=== PATIENT | female | born 1960 | race Caucasian/White ===

== ENCOUNTER 2017-01-11 09:28 | Inpatient (IN) | payer OTHER ==
--- NOTE | 2017-01-10 09:43 | HP ---
DATE OF SURGERY: 01/11/2017 ANTICIPATED PROCEDURE: Total abdominal hysterectomy, possible bilateral salpingo-oophorectomy, abdominovaginal sacropexy with mesh, Rhwanjja-Kadxofwsu-Losypv, posterior colporrhaphy. HISTORY OF PRESENT ILLNESS: The patient has significant pelvic prolapse. She is 55 years old. She noticed having issues after chronic constipation back in March, difficulty with bowel movements. [place] to have some bladder drop. Seen and examined pelvis in the office. She had 2+ cystocele, 2+ cervical prolapse, 2+ rectocele. Options discussed with her. Elected to proceed with total abdominal hysterectomy probably bilateral salpingo-oophorectomy. She is probably totally menopausal and her ovaries are probably atrophic. It was discussed with her that they would be removed if they are small and atrophic. Abdominovaginal sacropexy with mesh, Lkgjmaqk-Ekvlwwgii-Kxkdcv, post colporrhaphy. Diagram of the procedure was given. PAST MEDICAL HISTORY: ALLERGIES: PENICILLIN. MEDICATIONS: Calcium citrate, Dulcolax, Linzess, levothyroxine. PAST SURGICAL HISTORY: Cholecystectomy. Thyroid removal for cancer in 2007. EGD November 2015. PLAN: Total abdominal hysterectomy, bilateral salpingo-oophorectomy, abdominovaginal sacropexy with mesh, Ugroysjc-Hamxdtsos-Keehzd, posterior colporrhaphy.
[~2017-01-11 09:28] MED LIST: DILAUDID 2 MG INJECTION IV ONE; DIPRIVAN 200 MG/20 ML IV ONE; Decadron 4 MG INJ IV ONE; Dopram IV ONE; OFIRMEV IV ONE; Quelicin Fliptop 200 MG/10 ML IV ONE; SUBLIMAZE 100 MCG/2 ML IV ONE; TORAdol 30 mg Injection IV ONE; Versed 2 MG/2 ML Injection IV ONE; Zemuron 100 MG/10 ML IV ONE; Zofran 4 MG/2 ML VIAL IV ONE
[2017-01-11] MEDS ORDERED: Levofloxacin 500MG/100ML D5W 100 ML IV SCH (11:15)
[2017-01-11] MEDS ORDERED: Pepcid 20 MG VIAL IV SCH (11:15)
[2017-01-11] MEDS ORDERED: ENTEREG 12 MG PO SCH (11:15)
[2017-01-11] MEDS ORDERED: BICITRA 30 ML CUP PO SCH (11:15)
[2017-01-11] MEDS ORDERED: CLINDAMYCIN-D5W 900 MG/50 ML*** 50 ML IV SCH (11:30)
[2017-01-11] MEDS ORDERED: Lactated Ringers 1,000 ML IV SCH (11:30)
[2017-01-11] MEDS ORDERED: Pepcid 20 MG VIAL IV ONE (12:11)
[2017-01-11] MEDS ORDERED: BICITRA 30 ML CUP ONE (12:11)
[2017-01-11] MEDS ORDERED: Levofloxacin 500MG/100ML D5W 100 ML IV ONE (12:12)
[2017-01-11] MEDS ORDERED: Lactated Ringers 1,000 ML IV ONE ×4 (12:12→18:17)
[2017-01-11] MEDS ORDERED: SUBLIMAZE 100 MCG/2 ML ONE (19:00)
[2017-01-11] MEDS ORDERED: Morphine PCA 1 MG/ML 30 ML IV ONE (19:02)
[2017-01-11] MEDS: Morphine PCA 1 MG/ML 30 ML IV PRN (20:08)
[2017-01-11] MEDS: Zofran 4 MG/2 ML VIAL IV PRN (20:30)
[2017-01-11] MEDS: D5W/0.45NS W/ 20mEq KCl 1000 ML 1,000 ML IV SCH (21:47)
[2017-01-11] MEDS: Phenergan 25 MG INJ IV PRN (22:47)
[2017-01-12] MEDS: Zofran 4 MG/2 ML VIAL IV PRN (03:06)
[2017-01-12 05:40] LABS: Mean Cell Volume 91.9 fl (78-100); Mean Corpuscular Hemoglobin 30.1 pg (26-32); Mean Platelet Volume 10.4 fl (6-9.5); Platelet Count 253 K/mm3 (150-450); Red Blood Count 4.32 M/mm3 (4.1-5.4); Red Cell Distribution Width 13.6 % (11.5-14.0); White Blood Count 16.4 K/mm3 (4.0-10.5)
[2017-01-12 05:51] LABS: ANION GAP 12.1 MEQ/L (5-15); BLOOD UREA NITROGEN 8 mg/dL (9-20); CHLORIDE 104 mEq/L (98-107); Carbon Dioxide 28.9 mEq/L (21-32); Glucose 152 MG/DL (70-110); Potassium 5.1 mEq/L (3.5-5.1); SODIUM 140 mEq/L (136-145)
[2017-01-12] MEDS ORDERED: FEVERALL 650 MG RC PRN (06:10)
[2017-01-12] MEDS: Morphine PCA 1 MG/ML 30 ML IV PRN ×2 (06:55→09:32)
[2017-01-12] MEDS ORDERED: Colace 100 MG PO SCH (07:30)
[2017-01-12] MEDS: Phenergan 25 MG INJ IV PRN (07:32)
[2017-01-12] MEDS: SYNTHROID 125 MCG PO SCH (07:47)
[2017-01-12] MEDS ORDERED: MEDICATION INTERVENTION MC PRN (08:07)
--- NOTE | 2017-01-12 08:33 | OP ---
SURGERY DATE/TIME: 01/11/2017 1544 PREOPERATIVE DIAGNOSIS: Pelvic prolapse, stress incontinence, symptomatic 2 to 3+ rectocele. POSTOPERATIVE DIAGNOSIS: Pelvic prolapse, stress incontinence, symptomatic 2 to 3+ rectocele. PROCEDURES: 1) Total abdominal hysterectomy, bilateral salpingo-oophorectomy. 2) Rtbalujs-Lmybmujma-Tjooll. 3) Abdominovaginal sacropexy with mesh. 4) Posterior colporrhaphy. SURGEON: Brett Moctezuma M.D. EARLY [employer] PSYCHOLOGIST: Jackelin De La Fuente M.D. SECOND EARLY INTERVENTION [employer]CHO[employer] PSYCHOLOGIST: Medical student III. ANESTHESIA: General - John Orosco CRNA. COMPLICATIONS: None. CONDITION: Stable. INDICATION: The patient has pelvic prolapse quite symptomatic. DESCRIPTION OF PROCEDURE: The patient taken to surgery. General anesthetic, routine prep and drape. Traditional Pfannenstiel incision was predominantly sharply incised. The field exposed. Two moist laps placed. Right ureter identified. Just a few adhesions taken down. The fundus was grasped with quadruple tooth tenaculum. Left side infundibulopelvic ligament taken away from the pelvic side wall and at least 4 cm away from the ureter taken with 2.5 staple cartridge. Good approximation and seal. Right side similarly. Round ligament both sides were taken. Broad ligament taken with a single bite right down to pelvic peritoneum. Pelvic peritoneum was scored. Two paracervical bites on the left and right were singly suture ligated with 0 PDS. Anterior vaginal fornix was scored. Cervix circumscribed off the vaginal cuff. Vaginal cuff approximated with simple interrupted sutures #0 PDS very tightly secured. A 1 x 4 mesh secured on the posterior wall and sutured with #1 Prolene and then it was looped over the previously cut and sewn edge and tacked onto the anterior bowel wall with 0 Prolene simple interrupted sutures. It was brought around the right side of the colon laid very nicely. The sacral promontory closed. Trimmed to size. Two sutures #0 Prolene with the cephalad lip of the mesh flipped over so that this will be leaning away from the colon. A very nice lay of the mesh was present without any suggestion that there would be any ongoing issue either with colon or the bowel. The space of Retzius was entered. Periurethral tissue identified. Bite on the right, single tied on the left brought up the symphysis and tagged. Two oblique sutures on the bladder were then brought up to the anterior symphysis and abdominal wall. These were then sequentially tied. There was no necessity for a third suture with the placement of the bladder at this time. The catheter had been placed. It was withdrawn and it was replaced. Anterior abdominal wall and peritoneum closed with 0 PDS. The pyramidalis muscle closed with 0 PDS. Fascia closed with 0 looped PDS. Subcutaneous tissue irrigated. Skin closed with 4-0 Panacryl. Steri-Strips and sterile dressing applied. The posterior vaginal wall was exposed. A 2 inch strip 3/8 inch wide was excised. The skin was mobilized. The endopelvic fascia defined. It was then inverted and tucked in and reinforced with sutures #2-0 PDS. The vaginal mucosa was then scored and reapproximated with sutures #2-0 Vicryl. Good approximation and repair was present. The patient tolerated the procedure satisfactorily. There was no blood loss.
[2017-01-12] MEDS: D5W/0.45NS W/ 20mEq KCl 1000 ML 1,000 ML IV SCH ×2 (09:05→21:32)
[2017-01-12] MEDS ORDERED: IBUPROFEN PO SCH (10:00)
[2017-01-12] MEDS ORDERED: NON-FORMULARY ITEM (Linaclotide [Linzess] 290 MCG) PO SCH (10:00)
[2017-01-12] MEDS ORDERED: ESOMEPRAZOLE MAGNESIUM 40 MG PO SCH (10:00)
[2017-01-12] MEDS ORDERED: CALCIUM CITRATE PO SCH (10:00)
[2017-01-12] MEDS: Colace 100 MG PO SCH (10:30)
[2017-01-12] MEDS: MOTRIN 200 MG PO SCH (10:31)
[2017-01-12] MEDS: Protonix 40MG Tablet PO SCH (10:31)
[2017-01-12] MEDS: ENOXAPARIN SODIUM SQ SCH (10:31)
[2017-01-12] MEDS: Calcium 500MG W/Vit D Tablet PO SCH (10:31)
[2017-01-12] MEDS ORDERED: Levofloxacin 500MG/100ML D5W 100 ML IV SCH (12:00)
[2017-01-13] MEDS: Morphine PCA 1 MG/ML 30 ML IV PRN (06:25)
[2017-01-13] MEDS: D5W/0.45NS W/ 20mEq KCl 1000 ML 1,000 ML IV SCH ×2 (08:08→19:32)
[2017-01-13] MEDS: MOTRIN 200 MG PO SCH (09:35)
[2017-01-13] MEDS: Calcium 500MG W/Vit D Tablet PO SCH (09:35)
[2017-01-13] MEDS: SYNTHROID 125 MCG PO SCH (09:36)
[2017-01-13] MEDS: ENOXAPARIN SODIUM SQ SCH (09:36)
[2017-01-13] MEDS: Protonix 40MG Tablet PO SCH (09:36)
[2017-01-13] MEDS: Colace 100 MG PO SCH (09:36)
[2017-01-13] MEDS: NORCO 5/325 MG PO PRN ×2 (19:44→23:53)
[2017-01-14] MEDS: D5W/0.45NS W/ 20mEq KCl 1000 ML 1,000 ML IV SCH (07:31)
[2017-01-14] MEDS: TYLENOL 325 MG PO PRN ×2 (08:21→15:16)
[2017-01-14] MEDS: Protonix 40MG Tablet PO SCH (09:01)
[2017-01-14] MEDS: ENOXAPARIN SODIUM SQ SCH (09:01)
[2017-01-14] MEDS: SYNTHROID 125 MCG PO SCH (09:02)
[2017-01-14] MEDS: Calcium 500MG W/Vit D Tablet PO SCH (09:02)
[2017-01-14] MEDS: Colace 100 MG PO SCH (09:02)
[2017-01-14] MEDS: MOTRIN 200 MG PO SCH (09:02)
[2017-01-14] MEDS: Morphine PCA 1 MG/ML 30 ML IV PRN (09:19)
[2017-01-14 11:47] VITALS: BP 123/80; PULSE 91; O2SAT 98
== END 2017-01-14 15:20 | disposition home or self-care (01) | DRG 743 ==
LOC: MED SURG 12:06
PROVIDERS: ADMIT Surgery; ATTEND Surgery
PROC: 0UT90ZZ Resection of Uterus, Open Approach (ICD-10-PCS; principal; 2017-01-11)
PROC: 0UTC0ZZ Resection of Cervix, Open Approach (ICD-10-PCS; 2017-01-11)
PROC: 0UB70ZZ Excision of Bilateral Fallopian Tubes, Open Approach (ICD-10-PCS; 2017-01-11)
PROC: 0UB20ZZ Excision of Bilateral Ovaries, Open Approach (ICD-10-PCS; 2017-01-11)
PROC: 0USG0ZZ Reposition Vagina, Open Approach (ICD-10-PCS; 2017-01-11)
PROC: 0JQC0ZZ Repair Pelvic Region Subcutaneous Tissue and Fascia, Open Approach (ICD-10-PCS; 2017-01-11)
PROC: 0TSD0ZZ Reposition Urethra, Open Approach (ICD-10-PCS; 2017-01-11)
DX: N81.89 Other female genital prolapse (principal); N39.3 Stress incontinence (female) (male); N81.6 Rectocele; Z85.850 Personal history of malignant neoplasm of thyroid
CPT/HCPCS: 00840; 36415; 80048; 85027; 88305; 94762; C1781; J0330; J1100; J1170; J1650; J1885; J1956; J2250; J2270; J2405; J2550; J2704; J3010; L0625; A9270-GY

== ENCOUNTER 2021-12-21 08:39 | Day surgery (SDC) | payer BC ==
[~2021-12-21 08:39] MED LIST changes: +Ak-Dilate OPHTHALMIC*** 1.065 ML, Cyclogyl 1% OPHTH SOL 5 ML 1.065 ML, GATIFLOXACIN 0.5... OP ONE; +BETADINE 5% OPHTHALMIC 30 ML OP ONE; -DILAUDID 2 MG INJECTION IV ONE; -DIPRIVAN 200 MG/20 ML IV ONE; -Decadron 4 MG INJ IV ONE; -Dopram IV ONE; +Lactated Ringers 1,000 ML IV SCH; +NON-FORMULARY ITEM IJ ONE; -OFIRMEV IV ONE; -Quelicin Fliptop 200 MG/10 ML IV ONE; -SUBLIMAZE 100 MCG/2 ML IV ONE; +TETRACAINE 0.5% STERI-UNIT SOL OP ONE; -TORAdol 30 mg Injection IV ONE; -Versed 2 MG/2 ML Injection IV ONE; -Zemuron 100 MG/10 ML IV ONE; -Zofran 4 MG/2 ML VIAL IV ONE; +cefUROXime sodium 0.005 GM in Sodium Chloride Flush 30 ML*** 0.5 ML IJ ONE
[2021-12-21] MEDS ORDERED: Lactated Ringers 1,000 ML IV ONE ×2 (08:51→09:28)
[2021-12-21] MEDS ORDERED: ACETAZOLAMIDE 250 MG TABLET PO ONE (09:00)
[2021-12-21] MEDS ORDERED: Zofran 4 MG/2 ML VIAL IV PRN (09:00)
[2021-12-21] MEDS ORDERED: NON-FORMULARY ITEM OP ONE (10:00)
[2021-12-21] MEDS ORDERED: Epinephrine Preservative Free 1 MG/ML IJ ONE (10:00)
[2021-12-21] MEDS ORDERED: LIDOCAINE HCL 1% 50 MG/5 ML VL PF IJ ONE (10:00)
[2021-12-21] MEDS ORDERED: SUBLIMAZE 100 MCG/2 ML ONE (10:47)
[2021-12-21] MEDS ORDERED: DIPRIVAN 200 MG/20 ML IV ONE ×2 (10:56→11:04)
[2021-12-21 11:46] VITALS: O2SAT 98
[2021-12-21 11:57] VITALS: BP 132/87; PULSE 68
== END 2021-12-21 12:00 | disposition home or self-care (01) ==
LOC: SDC 08:39
PROVIDERS: ATTEND Ophthalmology
DX: H25.812 Combined forms of age-related cataract, left eye (principal)
CPT/HCPCS: C1780; J0171; J2001; J2704; J3010; A9270-GY

== ENCOUNTER 2022-01-25 09:10 | Day surgery (SDC) | payer BC ==
[~2022-01-25 09:10] MED LIST changes: +ACETAZOLAMIDE 250 MG TABLET PO ONE; +Ak-Dilate OPHTHALMIC*** 1.065 ML, Cyclogyl 1% OPHTH SOL 1.065 ML, GATIFLOXACIN 0.5% OPH... OP ONE; -Ak-Dilate OPHTHALMIC*** 1.065 ML, Cyclogyl 1% OPHTH SOL 5 ML 1.065 ML, GATIFLOXACIN 0.5... OP ONE; -NON-FORMULARY ITEM IJ ONE; +NON-FORMULARY ITEM OP ONE; -TETRACAINE 0.5% STERI-UNIT SOL OP ONE; +Zofran 4 MG/2 ML VIAL IV PRN
[2022-01-25] MEDS ORDERED: LIDOCAINE HCL 1% 50 MG/5 ML VL PF IJ ONE (09:11)
[2022-01-25] MEDS ORDERED: Epinephrine Preservative Free 1 MG/ML IJ ONE (09:11)
[2022-01-25] MEDS ORDERED: Lactated Ringers 1,000 ML IV ONE (09:26)
[2022-01-25] MEDS ORDERED: DIPRIVAN 200 MG/20 ML IV ONE (10:58)
[2022-01-25] MEDS ORDERED: SUBLIMAZE 100 MCG/2 ML ONE (11:05)
[2022-01-25 11:41] VITALS: BP 129/54; PULSE 66; O2SAT 99
== END 2022-01-25 11:53 | disposition home or self-care (01) ==
LOC: SDC 09:10
PROVIDERS: ATTEND Ophthalmology
DX: H25.811 Combined forms of age-related cataract, right eye (principal)
CPT/HCPCS: C1780; J0171; J2001; J2704; J3010; A9270-GY

== ENCOUNTER 2022-02-22 09:22 | Day surgery (SDC) | payer BC ==
[2022-02-22] MEDS ORDERED: Ak-Dilate OPHTHALMIC*** 1.065 ML, Cyclogyl 1% OPHTH SOL 1.065 ML, GATIFLOXACIN 0.5% OPH... OP ONE ×4 (09:30)
[2022-02-22] MEDS ORDERED: NON-FORMULARY ITEM OP ONE (09:30)
[2022-02-22] MEDS ORDERED: BETADINE 5% OPHTHALMIC 30 ML OP ONE (09:30)
[2022-02-22] MEDS ORDERED: Lactated Ringers 1,000 ML IV SCH (09:30)
[2022-02-22] MEDS ORDERED: cefUROXime sodium 0.005 GM in Sodium Chloride Flush 30 ML*** 0.5 ML IJ ONE ×2 (09:30→11:30)
[2022-02-22] MEDS ORDERED: Lactated Ringers 1,000 ML IV ONE ×2 (10:15→11:53)
[2022-02-22] MEDS ORDERED: MIOCHOL-E IO ONE ×2 (11:00→11:30)
[2022-02-22] MEDS ORDERED: DIPRIVAN 200 MG/20 ML IV ONE ×4 (11:11→12:10)
[2022-02-22] MEDS ORDERED: NON-FORMULARY ITEM IJ ONE (11:30)
[2022-02-22] MEDS ORDERED: ACETAZOLAMIDE 250 MG TABLET PO ONE (11:30)
[2022-02-22] MEDS ORDERED: LIDOCAINE HCL 1% 50 MG/5 ML VL PF IJ ONE (11:30)
[2022-02-22] MEDS ORDERED: Epinephrine Preservative Free 1 MG/ML IJ ONE (11:30)
[2022-02-22] MEDS ORDERED: Zofran 4 MG/2 ML VIAL IV PRN (11:30)
[2022-02-22 12:33] VITALS: O2SAT 99
[2022-02-22 12:41] VITALS: BP 136/82; PULSE 74
== END 2022-02-22 12:49 | disposition home or self-care (01) ==
LOC: SDC 09:22
PROVIDERS: ATTEND Ophthalmology
DX: H25.812 Combined forms of age-related cataract, left eye (principal)
CPT/HCPCS: C1780; J0171; J2001; J2704; A9270-GY